=== PATIENT | female | born 1950 ===

== ENCOUNTER 2016-09-04 10:39 | Day surgery (SDC) | payer MEDICARE ==
[2016-09-04] MEDS ORDERED: Lactated Ringer's 500 ML IV ONE (11:27)
[2016-09-04 11:43] VITALS: TEMP 97
[2016-09-04 12:41] VITALS: O2SAT 99
[2016-09-04 12:52] VITALS: BP 132/59; PULSE 56; RESP 14
== END 2016-09-04 12:53 | disposition home or self-care (01) ==
LOC: H.ENDO 10:39
PROVIDERS: ATTEND Internal Medicine Gastroenterology
DX: Z12.11 Encounter for screening for malignant neoplasm of colon (principal); E11.9 Type 2 diabetes mellitus without complications; I10 Essential (primary) hypertension; K64.8 Other hemorrhoids; K62.1 Rectal polyp
CPT/HCPCS: 45385; 82948; 88305; J7120